=== PATIENT | male | born 1970 | race African-American/Black ===

== ENCOUNTER 2019-08-08 01:05 | Emergency (ER) | payer MEDICAID ==
[~2019-08-08] VITALS: Ht 172.7 cm; Wt 67.4 kg
--- NOTE | 2019-08-08 01:07 | NUR ---
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
[2019-08-08 01:19] VITALS: BP 143/102
[2019-08-08] MEDS ORDERED: AMLODIPINE 5 MG TABLET PO ONE (01:30)
[2019-08-08] MEDS ORDERED: AMLODIPINE 5 MG TABLET ONE (01:32)
--- NOTE | 2019-08-08 01:34 | NUR ---
PT TO ED FOR AMBLODIPINE REFILL. HAS NO MEDICAL C/O AT THIS TIME.
== END 2019-08-08 01:55 | disposition home or self-care (01) ==
LOC: ED 01:46
DX: I10 Essential (primary) hypertension (principal); Z76.0 Encounter for issue of repeat prescription; F25.9 Schizoaffective disorder, unspecified
CPT/HCPCS: 99281; 99283